=== PATIENT | female | born 1940 | race Caucasian/White ===

== ENCOUNTER 2016-10-30 04:50 | Inpatient (IN) | payer OTHER ==
[~2016-10-30] VITALS: Ht 152.4 cm; Wt 65.3 kg
[~2016-10-30 04:50] MED LIST: ADULT LOW DOSE81 M1 PO; ADVIL LIQUI-GE200 MG PO; ADVIL,NUPRIN,M200 MG PO; AMLODIPINE BES2.5 MG PO; ASPIRIN81 M2 PO; BIOTIN 5000MCG PO; BIOTIN2500 MCG PO; Bentyl PO; COL-RITE100 M1 PO; CRANBERRY500 M2 PO; DIPHENHYDRAMINE50 M1 PO; DIPHENHYDRAMINE50 MG PO; DOCUSATE SODIU100 MG PO; ESTROVEN MAX1 TABLET PO; FLONASE16 G1 BOTH NARES; HYZAAR 100-21 TABLET PO; LOSARTAN-HCTZ1 EACH PO; Levaquin PO; NORVASC2.5 MG PO; OMEPRAZOLE40 M1 PO; SIMVASTATIN20 MG PO; SIMVASTATIN40 MG PO; Tylenol Regular Stre PO; ULTRAM50 MG PO; [UNRECOGNIZED DRUG - OTHER] PO
[2016-10-30 05:33] LABS: HEMATOCRIT 28.7 % (36.0-46.0); MCH 32.7 PG (29.0-34.0); MCHC 33.4 G/DL (30.0-36.0); MCV 97.6 FL (83-99); MEAN PLAT.VOLUME 9.8 uM^3 (9.5-12.4); PLATELET COUNT 247 K/uL (156-360); RBC DIS.WIDTH-CV 12.5 % (11.8-14.6); RBC DIS.WIDTH-SD 44.6 % (39-53); RED BLOOD COUNT 2.94 M/uL (3.80-5.20); WHITE BLOOD COUNT 8.9 K/uL (4.1-10.2)
[2016-10-30 05:46] LABS: CHLORIDE 98 mEq/L (99-109); SODIUM 130 mEq/L (136-147)
[2016-10-30 05:48] LABS: GLUCOSE 146 mg/dL (70-99)
[2016-10-30 05:49] LABS: ANION GAP 7 MEQ/L (2-14)
[2016-10-30 05:51] LABS: ALKALINE PHOSPHATASE 121 IU/L (3-129)
[2016-10-30 05:52] LABS: GFR ESTIMATE (CALCULATED) 42 mL/min/
[2016-10-30 05:53] LABS: UREA NITROGEN (BUN) 20 mg/dL (9-23)
[2016-10-30 06:01] LABS: TROP-I INTERPRETATION NEGATIVE; TROPONIN-I 0.02 ng/mL (0.0-0.30)
[2016-10-30 06:56] LABS: ADD MIUA? YES; BILIRUBIN NEGATIVE; BLOOD MODERATE; COLOR YELLOW ((YELLOW)); GLUCOSE (STRIP) NEGATIVE; KETONES NEGATIVE; LEUKOCYTES LARGE; NITRITE POSITIVE; PROTEIN (STRIP) 30; SPECIFIC GRAVITY 1.017 (1.000-1.030); UROBILINOGEN 0.2 MG/DL (0.2-1.0)
[2016-10-30 07:11] LABS: WHITE BLOOD CELLS TNTC /HPF (0-5)
[2016-10-30 07:11] LABS: LIPASE > 6000 U/L (1.0-51.0)
[2016-10-30 07:12] LABS: UCUL ADDED? YES
[2016-10-30 08:40] VITALS: BP 125/71
[2016-10-30 09:34] LABS: FERRITIN 180 NG/ML (10-291)
[2016-10-30 09:39] LABS: SAMPLE HEMOLYSIS CHECK 0; SAMPLE ICTERIC CHECK 0; SAMPLE LIPEMIA CHECK 0
[2016-10-30 11:32] VITALS: BP 142/65
[2016-10-30 16:26] VITALS: BP 122/61
[2016-10-30 19:33] VITALS: BP 114/54
[2016-10-30 23:47] VITALS: BP 113/56
[2016-10-31 03:37] VITALS: BP 114/53
[2016-10-31 05:32] LABS: HEMATOCRIT 25.6 % (36.0-46.0); MCH 33.6 PG (29.0-34.0); MCHC 33.6 G/DL (30.0-36.0); PLATELET COUNT 197 K/uL (156-360); RBC DIS.WIDTH-CV 12.7 % (11.8-14.6); RBC DIS.WIDTH-SD 46.2 % (39-53); RED BLOOD COUNT 2.56 M/uL (3.80-5.20); WHITE BLOOD COUNT 6.2 K/uL (4.1-10.2)
[2016-10-31 07:30] LABS: ALKALINE PHOSPHATASE 88 IU/L (3-129); ANION GAP 6 MEQ/L (2-14); CHLORIDE 105 MEQ/L (99-109); GFR ESTIMATE (CALCULATED) 51 mL/min/; LIPASE 771 U/L (1.0-51.0); POTASSIUM 4.2 MEQ/L (3.7-5.4); SAMPLE HEMOLYSIS CHECK 0; SAMPLE ICTERIC CHECK 0; SAMPLE LIPEMIA CHECK 0; SODIUM 135 MEQ/L (136-147); TOTAL BILIRUBIN 0.7 MG/DL (0.0-1.0); UREA NITROGEN (BUN) 14 mg/dL (9-23)
[2016-10-31 07:42] LABS: GLUCOSE 77 mg/dL (70-99)
[2016-10-31 07:57] VITALS: BP 111/58
[2016-10-31 11:24] VITALS: BP 102/51
[2016-10-31] MEDS ORDERED: LOSARTAN POTAS100 MG PO (14:33)
[2016-10-31 15:30] VITALS: BP 143/66
[2016-10-31 18:47] VITALS: BP 148/63
[2016-10-31 23:19] VITALS: BP 139/63
[2016-11-01 03:56] VITALS: BP 125/60
[2016-11-01 06:01] LABS: HEMATOCRIT 25.7 % (36.0-46.0); MCHC 33.5 G/DL (30.0-36.0); MCV 98.5 FL (83-99); MEAN PLAT.VOLUME 10.4 uM^3 (9.5-12.4); PLATELET COUNT 214 K/uL (156-360); RBC DIS.WIDTH-CV 12.6 % (11.8-14.6); RBC DIS.WIDTH-SD 45.3 % (39-53); RED BLOOD COUNT 2.61 M/uL (3.80-5.20); WHITE BLOOD COUNT 4.7 K/uL (4.1-10.2)
[2016-11-01 06:49] LABS: ALKALINE PHOSPHATASE 89 IU/L (3-129); ANION GAP 8 MEQ/L (2-14); CHLORIDE 103 MEQ/L (99-109); GFR ESTIMATE (CALCULATED) 57 mL/min/; GLUCOSE 81 mg/dL (70-99); LIPASE 126 U/L (1.0-51.0); SAMPLE HEMOLYSIS CHECK 0; SAMPLE ICTERIC CHECK 0; SAMPLE LIPEMIA CHECK 0; SODIUM 135 MEQ/L (136-147); UREA NITROGEN (BUN) 13 mg/dL (9-23)
[2016-11-01 06:56] LABS: TOTAL BILIRUBIN 0.5 MG/DL (0.0-1.0)
[2016-11-01 07:24] VITALS: BP 101/56
[2016-11-01 15:30] VITALS: BP 123/66
[2016-11-01 21:40] VITALS: BP 154/69
[2016-11-01 23:23] VITALS: BP 139/60
[2016-11-02 07:11] LABS: EOSINOPHIL (%) 5.9 % (0-5); EOSINOPHIL COUNT 0.3 K/uL (0-0.3); HEMATOCRIT 23.8 % (36.0-46.0); IMMATURE GRANULOCYTE (%) 0.2 % (0.0-0.7); INSTRUMENT ABS NEUTROPHIL CT 2.2 K/uL; LYMPHOCYTE COUNT 1.3 K/uL (1.0-2.8); MCH 33.9 PG (29.0-34.0); MCHC 34.5 G/DL (30.0-36.0); MCV 98.3 FL (83-99); MEAN PLAT.VOLUME 10.4 uM^3 (9.5-12.4); MONOCYTE COUNT 0.5 K/uL (0-0.8); NEUTROPHIL (%) 52.4 % (45-76); NEUTROPHIL COUNT 2.2 K/uL (1.8-6.4); PLATELET COUNT 208 K/uL (156-360); RBC DIS.WIDTH-CV 12.7 % (11.8-14.6); RBC DIS.WIDTH-SD 46.3 % (39-53); RED BLOOD COUNT 2.42 M/uL (3.80-5.20); WHITE BLOOD COUNT 4.3 K/uL (4.1-10.2)
[2016-11-02 07:24] VITALS: BP 146/65
[2016-11-02 07:27] LABS: ALKALINE PHOSPHATASE 84 IU/L (3-129); ANION GAP 4 MEQ/L (2-14); CHLORIDE 105 MEQ/L (99-109); GFR ESTIMATE (CALCULATED) > 59 mL/min/; GLUCOSE 95 mg/dL (70-99); LIPASE 53 U/L (1.0-51.0); SAMPLE HEMOLYSIS CHECK 0; SAMPLE ICTERIC CHECK 0; SAMPLE LIPEMIA CHECK 0; SODIUM 136 MEQ/L (136-147); UREA NITROGEN (BUN) 11 mg/dL (9-23)
[2016-11-02 07:51] LABS: TOTAL BILIRUBIN 0.3 MG/DL (0.0-1.0)
[2016-11-02 15:40] VITALS: BP 145/67
[2016-11-02] MEDS ORDERED: ENDOCET 5-3251 EACH PO (15:45)
[2016-11-02] MEDS ORDERED: PANTOPRAZOLE SO40 MG PO (15:47)
== END 2016-11-02 18:06 | disposition home or self-care (01) | DRG 439 ==
LOC: EME 04:50 → EDOF 07:27 → 2EAST 07:27 → ENRESERV 07:32 → EDOF 07:32 → ENRESERV 07:54 → 2EAST 08:22
PROVIDERS: Emergency Medicine; Internal Medicine; Internal Medicine Gastroenterology; Student in an Organized Health Care Education/Training Program
DX: K85.10 Biliary acute pancreatitis without necrosis or infection (principal); E87.1 Hypo-osmolality and hyponatremia; J90 Pleural effusion, not elsewhere classified; E86.1 Hypovolemia; K80.70 Calculus of gallbladder and bile duct without cholecystitis without obstruction; I10 Essential (primary) hypertension; E78.5 Hyperlipidemia, unspecified; D64.9 Anemia, unspecified; K21.9 Gastro-esophageal reflux disease without esophagitis; Z96.652 Presence of left artificial knee joint; M19.90 Unspecified osteoarthritis, unspecified site; I25.10 Atherosclerotic heart disease of native coronary artery without angina pectoris; K74.60 Unspecified cirrhosis of liver; K82.8 Other specified diseases of gallbladder; Z88.0 Allergy status to penicillin; Z86.73 Personal history of transient ischemic attack (TIA), and cerebral infarction without residual deficits; Z95.1 Presence of aortocoronary bypass graft; Z90.49 Acquired absence of other specified parts of digestive tract; Z90.710 Acquired absence of both cervix and uterus; Z82.49 Family history of ischemic heart disease and other diseases of the circulatory system; Z80.7 Family history of other malignant neoplasms of lymphoid, hematopoietic and related tissues
CPT/HCPCS: 71010; 74177; 74181; 76705; 78227; 80053; 81003; 82728; 83605; 83690; 84466; 84484; 85025; 85027; 87086; 93005; 99281; 99284; A9510; J0696; J1650; J2270; J2405; J7030; J7050; S0028

== ENCOUNTER 2017-08-11 03:51 | Emergency (ER) | payer OTHER ==
[~2017-08-11] VITALS: Ht 152.4 cm; Wt 62.7 kg
[~2017-08-11 03:51] MED LIST changes: +ENDOCET 5-3251 EACH PO; +LOSARTAN POTAS100 MG PO; +PANTOPRAZOLE SO40 MG PO
[2017-08-11 04:53] LABS: HEMATOCRIT 33.8 % (36.0-46.0); HEMOGLOBIN 11.8 G/DL (11.9-15.5); MCH 33.3 PG (29.0-34.0); MCHC 34.9 G/DL (30.0-36.0); MCV 95.5 FL (83-99); PLATELET COUNT 214 K/uL (156-360); RBC DIS.WIDTH-SD 42.3 % (39-53); RED BLOOD COUNT 3.54 M/uL (3.80-5.20); WHITE BLOOD COUNT 6.1 K/uL (4.1-10.2)
[2017-08-11 05:03] LABS: APPEARANCE CLOUDY ((CLEAR)); BILIRUBIN NEGATIVE; BLOOD LARGE; GLUCOSE (STRIP) NEGATIVE; KETONES NEGATIVE; LEUKOCYTES TRACE; NITRITE NEGATIVE; PROTEIN (STRIP) 100; SPECIFIC GRAVITY 1.009 (1.000-1.030); UROBILINOGEN 0.2 MG/DL (0.2-1.0)
[2017-08-11 05:03] LABS: CHLORIDE 100 mEq/L (99-109); POTASSIUM 3.9 mEq/L (3.7-5.4); SODIUM 133 mEq/L (136-147)
[2017-08-11 05:04] LABS: COLOR RED ((YELLOW))
[2017-08-11 05:05] LABS: GLUCOSE 109 mg/dL (70-99)
[2017-08-11 05:09] LABS: CREATININE 1.2 mg/dL (0.6-1.3); GFR ESTIMATE (CALCULATED) 46 mL/min/
[2017-08-11 05:10] LABS: UREA NITROGEN (BUN) 26 mg/dL (9-23)
[2017-08-11 05:16] LABS: RED BLOOD CELLS TNTC /HPF (0-5); UCUL ADDED? YES
[2017-08-11] MEDS ORDERED: KEFLEX500 MG PO (05:22)
[2017-08-11 05:48] VITALS: BP 166/72
== END 2017-08-11 05:48 | disposition home or self-care (01) ==
LOC: EME 03:51
PROVIDERS: Emergency Medicine
DX: N30.91 Cystitis, unspecified with hematuria (principal); Z87.440 Personal history of urinary (tract) infections; I10 Essential (primary) hypertension; E78.5 Hyperlipidemia, unspecified; K21.9 Gastro-esophageal reflux disease without esophagitis; M19.90 Unspecified osteoarthritis, unspecified site; F41.9 Anxiety disorder, unspecified; Z79.82 Long term (current) use of aspirin; Z87.19 Personal history of other diseases of the digestive system; Z90.49 Acquired absence of other specified parts of digestive tract; Z88.0 Allergy status to penicillin; Z88.8 Allergy status to other drugs, medicaments and biological substances
CPT/HCPCS: 80048; 81003; 85027; 87086; 99281; 99283

== ENCOUNTER 2017-08-12 21:40 | Emergency (ER) | payer OTHER ==
[~2017-08-12] VITALS: Ht 152.4 cm; Wt 62.3 kg
[~2017-08-12 21:40] MED LIST changes: +KEFLEX500 MG PO
[2017-08-12 22:07] LABS: HEMATOCRIT 31.8 % (36.0-46.0); HEMOGLOBIN 10.9 G/DL (11.9-15.5); MCH 33.3 PG (29.0-34.0); MCHC 34.3 G/DL (30.0-36.0); MCV 97.2 FL (83-99); PLATELET COUNT 209 K/uL (156-360); RBC DIS.WIDTH-CV 12.5 % (11.8-14.6); RBC DIS.WIDTH-SD 44.8 % (39-53); RED BLOOD COUNT 3.27 M/uL (3.80-5.20); WHITE BLOOD COUNT 5.6 K/uL (4.1-10.2)
[2017-08-12 22:17] LABS: ALBUMIN 3.7 g/dL (3.2-4.8)
[2017-08-12 22:18] LABS: CHLORIDE 102 mEq/L (99-109); POTASSIUM 4.2 mEq/L (3.7-5.4); SODIUM 134 mEq/L (136-147)
[2017-08-12 22:20] LABS: GLUCOSE 132 mg/dL (70-99); TOTAL PROTEIN 7.4 g/dL (6.4-8.3)
[2017-08-12 22:22] LABS: TOTAL BILIRUBIN 0.4 mg/dL (0.0-1.0)
[2017-08-12 22:23] LABS: ALKALINE PHOSPHATASE 91 IU/L (3-129)
[2017-08-12 22:24] LABS: CREATININE 1.5 mg/dL (0.6-1.3); GFR ESTIMATE (CALCULATED) 36 mL/min/
[2017-08-12 22:25] LABS: AST (GOT) 21 IU/L (2-34); UREA NITROGEN (BUN) 30 mg/dL (9-23)
[2017-08-12 22:26] LABS: ALT (GPT) 12 IU/L (3-49)
[2017-08-13] MEDS ORDERED: PHENAZOPYRIDIN200 MG PO (00:10)
[2017-08-13 00:32] VITALS: BP 133/67
== END 2017-08-13 00:33 | disposition home or self-care (01) ==
LOC: EME → EDBD 21:40 → EME 21:40
DX: N30.91 Cystitis, unspecified with hematuria (principal); E78.5 Hyperlipidemia, unspecified; F41.9 Anxiety disorder, unspecified; I10 Essential (primary) hypertension; K21.9 Gastro-esophageal reflux disease without esophagitis; Z79.82 Long term (current) use of aspirin; Z88.0 Allergy status to penicillin
CPT/HCPCS: 74176; 80053; 85027; 99281; 99283